=== PATIENT | female | born 1995 | race Two or more races ===

== ENCOUNTER 2019-06-05 10:45 | Emergency (ER) | payer OTHER, SELFPAY ==
--- NOTE | ~2019-06-05 | XR_ITS ---
EXAMINATION: XR chest 1V portable INDICATION: Shortness of breath, fever, body aches TECHNIQUE: Portable AP chest at 1116 hours COMPARISON: None available FINDINGS: The lungs are free of acute opacities. There is no pleural effusion or pneumothorax. The ca rdiomediastinal silhouette is normal. The visualized bones and soft tissues are unremarkable. IMPRESSION: 1. No acute cardiopulmonary abnormality. Reviewed, dictated and finalized at location B.
[2019-06-05 10:50] VITALS: BP 119/79; PULSE 72; RESP 12; TEMP 36.9; O2SAT 100
[2019-06-05 10:53] VITALS: O2SAT 99
--- NOTE | 2019-06-05 11:20 | ED.GENADULT ---
HPI - General Adult General Chief complaint: Upper Respiratory Infection Stated complaint: FLU SYMPTOMS Time Seen by Provider: 06/05/19 10:45 Source: patient and EMS Mode of arrival: ambulatory Limitations: no limitations History of Present Illness HPI narrative: Patient is a 23-year-old female who presents to emergency department for evaluation of fever chills body aches fatigue feeling slightly dyspneic that began this morning upon waking patient took [id number] medications at home patient denies known sick contacts patient denies vomiting diarrhea or cough on arrival patient in the room in no distress MD complaint: fever Related Data Allergies Allergy/AdvReac Type Severity Reaction Status Date / Time No Known Allergies Allergy Verified 06/05/19 10:53 Review of Systems Review of Systems: All systems reviewed & are unremarkable except as noted in HPI and below PMFSH Social History Social History (Updated 06/05/19 @ 11:24 by Ernst Tobar PA-C) Smoking status: Never smoker Exam Narrative: Exam Narrative: GENERAL: Well-appearing, well-nourished, and in no acute distress. HEAD: Normocephalic, atraumatic. EYES: PERRLA and EOMI. ENT: Nares clear, no rhinorrhea or epistaxis. Mucous membranes moist. Oropharynx with erythema at tonsillar hypertrophy exudate or other lesions. CHEST: Clear to auscultation. No respiratory distress. No wheezes rales or rhonchi HEART: Regular rate and rhythm. No murmur heard. EXTREMITIES: Normal range of motion. No edema. SKIN: Warm, dry, no rash. NEURO: No focal deficits. Alert and oriented x3. Cranial nerves II through XII grossly intact PSYCH: Normal mood and affect. Course Course Emergency Course: Patient in the room with likely viral syndrome nontoxic-appearing no distress felt appropriate for outpatient reevaluation advised to self quarantine at home and to follow with primary care Vital Signs Vital signs: Vital Signs Temperature 98.4 F 06/05/19 10:50 Pulse Rate 72 06/05/19 10:50 Respiratory Rate 12 06/05/19 10:50 Blood Pressure 119/79 06/05/19 10:50 Pulse Oximetry 100 06/05/19 10:50 Temperature 98.4 F 06/05/19 10:50 Pulse Rate 72 06/05/19 10:50 Respiratory Rate 12 06/05/19 10:50 Blood Pressure 119/79 06/05/19 10:50 Pulse Oximetry 99 06/05/19 10:53 Medical Decision Making MDM Narrative Medical decision making narrative: Patient in the room in no distress no pneumonia seen on exam afebrile nontoxic-appearing advised to follow with primary care as well as instructed on reasons to return felt appropriate for outpatient reevaluation advising the patient to return home and self quarantine Vital Signs Vital Signs: Vital Signs Temperature 98.4 F 06/05/19 10:50 Pulse Rate 72 06/05/19 10:50 Respiratory Rate 12 06/05/19 10:50 Blood Pressure 119/79 06/05/19 10:50 Pulse Oximetry 100 06/05/19 10:50 Temperature 98.4 F 06/05/19 10:50 Pulse Rate 72 06/05/19 10:50 Respiratory Rate 12 06/05/19 10:50 Blood Pressure 119/79 06/05/19 10:50 Pulse Oximetry 99 06/05/19 10:53 Lab Data Labs: Influenza A Screen Negative Reference Range: Negative Influenza B Screen Negative Reference Range: Negative Strep Screen Presumptive Negative *(Reference Range: Negative)* Discharge Plan Discharge Clinical Impression: Upper respiratory infection Patient Disposition: Home, Self-Care Condition: Stable Instructions: Antibiotic Form, Viral Syndrome (ED) Additional Instructions: Follow up with your primary care provider within 14 days. Go to ER for shortness of breath, difficulty breathing, chest pain, fever/chills, weakness, nauseau/vomitting, etc. or any other concerns. Take any prescribed medications as directed. If you do not have a drug allergy to tylenol or motrin and can tolerate it then take tylenol or motrin as needed for discomfort
== END 2019-06-05 11:45 | disposition home or self-care (01) ==
PROVIDERS: Emergency Provider Emergency Medicine
DX: J06.9 Acute upper respiratory infection, unspecified (principal)
CPT/HCPCS: 71045; 87081; 87804; 87880; 99283